=== PATIENT | female | born 1960 | race Caucasian/White ===

== ENCOUNTER 2016-10-17 10:31 | Emergency (ER) | payer OTHER ==
[~2016-10-17] VITALS: Ht 167.6 cm; Wt 77.2 kg
[2016-10-17 11:23] LABS: BASOPHIL % 0.3 % (0-2); PLATELET COUNT 251 x10^3mcL (130-400); RED CELL DISTRIBUTION WIDTH 13.6 % (11.5-14.5)
[2016-10-17 12:29] LABS: ALBUMIN 3.7 g/dL (3.4-5.0); CARBON DIOXIDE 27.9 mmol/L (21-32); CHLORIDE SERUM 102 mmol/L (98-107); CREATININE SERUM 0.8 mg/dL (0.6-1.0); GFR1 > 60 mL/min; GLUCOSE SERUM 95 mg/dL (74-106); POTASSIUM SERUM 4.5 mmol/L (3.5-5.1); SODIUM SERUM 138 mmol/L (136-145); TOTAL PROTEIN, SERUM 6.8 g/dL (6.4-8.2)
[2016-10-17 12:30] LABS: ALKALINE PHOSPHATASE 90 U/L (46-116); ALT/SGPT 29 U/L (14-59); AST/SGOT 22 U/L (15-37); BILIRUBIN TOTAL 0.25 mg/dL (0.20-1.00); CALCIUM 8.4 mg/dL (8.5-10.1)
[2016-10-17 13:04] VITALS: BP 119/85
[2016-10-17 13:35] LABS: CHOLESTEROL/HDL RATIO 2.8
== END 2016-10-17 13:05 | disposition home or self-care (01) ==
LOC: ED 10:31
PROVIDERS: Emergency Medicine; Family Medicine
DX: R07.9 Chest pain, unspecified (principal); I10 Essential (primary) hypertension; G89.29 Other chronic pain; M79.7 Fibromyalgia
CPT/HCPCS: 83880; J3010; Q0092

== ENCOUNTER 2019-12-01 13:56 | Emergency (ER) | payer OTHER ==
[~2019-12-01] VITALS: Ht 167.6 cm; Wt 70.3 kg
[2019-12-01 15:02] VITALS: BP 155/77; Ht 167.6 cm; Wt 70.3 kg
== END 2019-12-01 16:13 | disposition home or self-care (01) ==
LOC: ED 13:56
DX: G89.29 Other chronic pain (principal); M25.511 Pain in right shoulder; M79.7 Fibromyalgia